=== PATIENT | female | born 1935 | race Caucasian/White ===

== ENCOUNTER → 2017-08-01 | Outpatient (CLI) | payer MEDICARE | END | disposition home or self-care (01) | LOC: RAD 10:31 | DX: J44.9 Chronic obstructive pulmonary disease, unspecified (principal) ==

== ENCOUNTER → 2017-08-14 | Outpatient (CLI) | payer MEDICARE | END | disposition home or self-care (01) | LOC: RAD 11:15 | DX: Z13.820 Encounter for screening for osteoporosis (principal); N95.9 Unspecified menopausal and perimenopausal disorder; Z90.710 Acquired absence of both cervix and uterus ==

== ENCOUNTER 2018-01-25 08:36 | Emergency (ER) | payer MEDICARE, OTHER ==
[~2018-01-25] VITALS: Ht 160 cm; Wt 56.7 kg
[2018-01-25] MEDS ORDERED: PREDNISONE20 M1 PO (08:55)
== END 2018-01-25 09:05 | disposition home or self-care (01) ==
LOC: ED 08:36
DX: S80.261A Insect bite (nonvenomous), right knee, initial encounter (principal); S40.861A Insect bite (nonvenomous) of right upper arm, initial encounter; S10.86XA Insect bite of other specified part of neck, initial encounter; Z88.2 Allergy status to sulfonamides; Z90.710 Acquired absence of both cervix and uterus; W57.XXXA Bitten or stung by nonvenomous insect and other nonvenomous arthropods, initial encounter; Y93.84 Activity, sleeping; Y92.099 Unspecified place in other non-institutional residence as the place of occurrence of the external cause; Y99.8 Other external cause status

== ENCOUNTER 2018-03-07 12:11 | Emergency (ER) | payer MEDICARE, OTHER ==
[~2018-03-07] VITALS: Ht 160 cm; Wt 55.8 kg
[~2018-03-07 12:11] MED LIST: PREDNISONE20 M1 PO
== END 2018-03-07 13:59 | disposition home or self-care (01) ==
LOC: ED 12:11
DX: S63.502A Unspecified sprain of left wrist, initial encounter (principal); Z88.2 Allergy status to sulfonamides; X58.XXXA Exposure to other specified factors, initial encounter; Y93.89 Activity, other specified; Y92.89 Other specified places as the place of occurrence of the external cause; Y99.8 Other external cause status

== ENCOUNTER 2018-07-22 04:27 | Emergency (ER) | payer MEDICARE, OTHER ==
[~2018-07-22] VITALS: Ht 160 cm; Wt 54.4 kg
[2018-07-22] MEDS ORDERED: MACROBID100 M1 PO (04:29)
== END 2018-07-22 04:54 | disposition home or self-care (01) ==
LOC: ED 04:27
DX: N39.0 Urinary tract infection, site not specified (principal); R42 Dizziness and giddiness; Z88.2 Allergy status to sulfonamides; Z90.710 Acquired absence of both cervix and uterus

== ENCOUNTER 2018-07-26 09:59 | Inpatient (IN) | payer MEDICARE, OTHER ==
[~2018-07-26] VITALS: Ht 160 cm; Wt 57.2 kg
--- NOTE | ~2018-07-26 | EKG ---
[place], [place] ELECTROCARDIOGRAM REPORT NAME: HARVINDER VIEIRA UNIT #: [id number] ROOM: [facility] DOCTOR: JESSIE DRAFT REPORT BIRTHDATE: [birth year] [facility] Test Date: 2018-07-26 Test Time: 16:09:22 Pat Name: HARVINDER VIEIRA Department: Room: [place] [address] Gender: F [employer] Lounge Receptionist: Latrice Flor : 1935 Requested By: ANITRA OSWALD Order Number: [id number] Reading MD: Mohamud Lopez MD Measurements Intervals [place] Rate: 89 P: 48 MO: 148 QRS: -23 QRSD: 146 T: 160 QT: 474 QTc: 577 Interpretive Statements Sinus rhythm Probable left atrial enlargement Left bundle branch block No change from earlier ECG this date Electronically Signed On 07-29-2018 15:35:20 PST by Mohamud Lopez MD CM:EKGRPT:ELECTROCARDIOGRAM REPORT [id number] ANITRA GUAMAN DRAFT REPORT ANITRA OSWALD DO
--- NOTE | ~2018-07-26 | EKG ---
[place], [place] ELECTROCARDIOGRAM REPORT NAME: HARVINDER VIEIRA UNIT #: [id number] ROOM: [facility] DOCTOR: STERLINGANY DRAFT REPORT BIRTHDATE: [birth year] [facility] Test Date: 2018-07-26 Test Time: 10:33:24 Pat Name: HARVINDER VIEIRA Department: Room: [facility] Gender: F Pet Resort Concierge: Patricia Barron : 1935 Requested By: JANINE ESCOBEDO Order Number: [id number] Reading MD: Mary Landers MD Measurements Intervals [place] Rate: 97 P: [place]: QRS: -34 QRSD: 142 T: 135 QT: 462 QTc: 587 Interpretive Statements Atrial fibrillation Left bundle branch block Electronically Signed On 07-26-2018 16:02:06 PST by Mary Landers MD CM:EKGRPT:ELECTROCARDIOGRAM REPORT [id number] JANINE ESCOBEDO EPIPHANY DRAFT REPORT JANINE ESCOBEDO
--- NOTE | ~2018-07-26 | EKG ---
[place], [place] ELECTROCARDIOGRAM REPORT NAME: HARVINDER VIEIRA UNIT #: [id number] ROOM: [facility] DOCTOR: JESSIE DRAFT REPORT BIRTHDATE: [birth year] [facility] Test Date: 2018-07-26 Test Time: 13:05:49 Pat Name: HARVINDER VIEIRA Department: Room: [place] [address] Gender: F Principal Programmer: Patricia Barron : 1935 Requested By: ANITRA OSWALD Order Number: [id number] Reading MD: Mary Landers MD Measurements Intervals [place] Rate: 80 P: 60 MD: 145 QRS: -23 QRSD: 141 T: 158 QT: 535 QTc: 618 Interpretive Statements Sinus rhythm Left bundle branch block Electronically Signed On 07-26-2018 16:02:50 PST by Mary Landers MD CM:EKGRPT:ELECTROCARDIOGRAM REPORT [id number] 1602 ANITAR GUAMAN DRAFT REPORT ANITRA OSWALD DO
[~2018-07-26 09:59] MED LIST changes: +MACROBID100 M1 PO
[2018-07-26 10:02] VITALS: BP 145/68
[2018-07-26 10:27] LABS: BILIRUBIN NEGATIVE (NEGATIVE); BLOOD TRACE-INTACT (NEGATIVE); CLARITY SL CLOUDY (CLEAR); COLOR YELLOW (YELLOW); GLUCOSE NEGATIVE (NEGATIVE); KETONE 1+ (NEGATIVE); LEUKO ESTERASE 1+ (NEGATIVE); NITRITE NEGATIVE (NEGATIVE); PH 5.5 (5.0-9.0); SPECIFIC GRAVITY >= 1.030 (1.005-1.030); UROBILINOGEN 0.2 E.U./dl (0.2-1.0)
[2018-07-26 10:32] LABS: HEMATOCRIT 38.5 % (37.0-47.0); HEMOGLOBIN 12.3 g/dl (12.0-16.0); MEAN CELL VOLUME 88.3 fl (81.0-99.0); MEAN CORPUSCULAR HGB 28.2 pg (27.0-31.0); MEAN CORPUSCULAR HGB CONC 31.9 g/dl (33.0-37.0); PLATELET COUNT AUTOMATED 450 10*3/uL (130-400); RED BLOOD COUNT 4.36 10*6/uL (4.10-5.10); WHITE BLOOD COUNT 17.4 10*3/uL (4.8-10.8)
[2018-07-26 10:36] LABS: BACTERIA 2+; WBC 16-20 wbc/hpf (0-5)
[2018-07-26 10:43] LABS: ACT PARTIAL THROMBO TIME 23.3 SECONDS (20.8-31.5); INTERNATIONAL NORM RATIO 1.1 (2.0-3.5)
[2018-07-26 10:50] LABS: ACANTHOCYTES FEW; BURR CELLS FEW; PLATELET SUFFICIENCY HIGH (NORMAL); POLYCHROMASIA SLIGHT; TOTAL CELLS COUNTED 100 #CELLS
[2018-07-26 10:55] LABS: ALBUMIN 3.8 gm/dl (3.1-4.5); CREATININE 1.2 mg/dL (0.55-1.02); POTASSIUM 3.7 mmol/L (3.5-5.1); TOTAL PROTEIN 7.2 gm/dL (6.4-8.2)
[2018-07-26 10:58] LABS: TROPONIN I 1.34 ng/ml (<0.045)
[2018-07-26 11:23] VITALS: BP 142/62
[2018-07-26 11:42] VITALS: BP 144/65
[2018-07-26 12:07] VITALS: BP 137/66
--- NOTE | 2018-07-26 12:15 | NUR ---
A 83yr old female admitted to ICCU, under the services of RASHAUN Griffiths DO with a diagnosis of UTI,Renal insufficiency, elevated Troponins, and Sepsis. Chief complaint is UTI. Patient arrived via stretcher from ER. Monitor applied. Initial assessment completed. Vital signs taken and recorded. See assessment for past medical history, medications and allergies. Patient and/or family oriented to unit. [facility] visitation policy reviewed. Clothing/patient valuable form completed. Medications reconciled with actual bottles, which were then given to her family. RONEL MEEK
[2018-07-26] MEDS ORDERED: MIDODRINE HCL5 M1 PO (12:18)
[2018-07-26] MEDS ORDERED: DEXILANT30 MG PO (12:19)
[2018-07-26] MEDS ORDERED: JANUVIA100 MG PO (12:19)
[2018-07-26] MEDS ORDERED: BETAPACE80 MG PO (12:20)
[2018-07-26] MEDS ORDERED: CRESTOR20 M1 PO (12:22)
[2018-07-26] MEDS ORDERED: ELIQUIS2.5 M1 PO (12:23)
--- NOTE | 2018-07-26 13:10 | NUR ---
[facility] NOTIFIED OF CONSULT.
--- NOTE | 2018-07-26 14:45 | NUR ---
DR. ARELLANO HERE AND NOTIFIED DR. HUNTER OF CONSULT AND CT SCAN REPORT.
--- NOTE | 2018-07-26 15:09 | NUR ---
MESSAGE LEFT WITH SURGERY RN FOR CONSULT WITH DR. PENN
[2018-07-26 16:00] VITALS: BP 137/66
[2018-07-26 16:42] LABS: TROPONIN I 1.62 ng/ml (<0.045)
--- NOTE | 2018-07-26 18:21 | NUR ---
REPORT CALLED TO [facility] TAMIKA JOHNSON. TRANSPORTAION BEING ARRANGED WITH A LOCAL AMBULANCE COMPANY.
--- NOTE | 2018-07-26 19:03 | NUR ---
TRANSFERRED TO [facility]IA [facility]. REPORT CALLED TO ALEX
[2018-07-27 09:09] LABS: HEPATITIS B SURFACE AG Negative (Negative); HEPATITIS C VIRUS ANTIBODY <0.1 s/co (0.0-0.9)
== END 2018-07-26 19:03 | disposition short-term general hospital (02) | DRG 871 ==
LOC: ED 09:59 → EDHOLD 11:41 → ICCU 11:41
PROVIDERS: Internal Medicine; Nurse Practitioner Family; ADMIT Internal Medicine
DX: A41.9 Sepsis, unspecified organism (principal); R65.20 Severe sepsis without septic shock; N17.0 Acute kidney failure with tubular necrosis; K25.5 Chronic or unspecified gastric ulcer with perforation; N30.00 Acute cystitis without hematuria; E87.1 Hypo-osmolality and hyponatremia; I24.8 Other forms of acute ischemic heart disease; Z66 Do not resuscitate; R07.89 Other chest pain; I48.0 Paroxysmal atrial fibrillation; E78.5 Hyperlipidemia, unspecified; I44.7 Left bundle-branch block, unspecified; K66.8 Other specified disorders of peritoneum; E11.65 Type 2 diabetes mellitus with hyperglycemia; D47.3 Essential (hemorrhagic) thrombocythemia; E86.0 Dehydration; K21.9 Gastro-esophageal reflux disease without esophagitis; I95.0 Idiopathic hypotension; I34.0 Nonrheumatic mitral (valve) insufficiency; I27.20 Pulmonary hypertension, unspecified; Z51.5 Encounter for palliative care; Z86.711 Personal history of pulmonary embolism; Z88.2 Allergy status to sulfonamides; Z82.49 Family history of ischemic heart disease and other diseases of the circulatory system; Z79.899 Other long term (current) drug therapy

== ENCOUNTER → 2018-11-13 | Outpatient (CLI) | payer MEDICARE, OTHER ==
[~2018-11-13] MED LIST changes: +BETAPACE80 MG PO; +CRESTOR20 M1 PO; +DEXILANT30 MG PO; +ELIQUIS2.5 M1 PO; +JANUVIA100 MG PO; +MIDODRINE HCL5 M1 PO
[2018-11-13 09:32] LABS: BILIRUBIN NEGATIVE (NEGATIVE); BLOOD NEGATIVE (NEGATIVE); CLARITY CLEAR (CLEAR); COLOR YELLOW (YELLOW); GLUCOSE NEGATIVE (NEGATIVE); KETONE NEGATIVE (NEGATIVE); LEUKO ESTERASE TRACE (NEGATIVE); NITRITE NEGATIVE (NEGATIVE); PH 5.5 (5.0-9.0); UROBILINOGEN 0.2 E.U./dl (0.2-1.0)
[2018-11-13 09:43] LABS: ALBUMIN 4.1 gm/dl (3.1-4.5); CREATININE 2.75 mg/dL (0.55-1.02); PHOSPHOROUS 4.9 mg/dL (2.5-4.9); POTASSIUM 3.6 mmol/L (3.5-5.1)
[2018-11-13 09:46] LABS: BACTERIA 1+; EPITHELIAL CELLS 21-30
== END | disposition home or self-care (01) ==
LOC: LAB 08:53
PROVIDERS: Internal Medicine Nephrology
DX: N17.9 Acute kidney failure, unspecified (principal); Z79.899 Other long term (current) drug therapy

== ENCOUNTER 2019-05-24 10:04 | Inpatient (IN) | payer MEDICARE, OTHER ==
[~2019-05-24] VITALS: Ht 160 cm; Wt 60.1 kg
[2019-05-24 10:06] VITALS: BP 150/80
[2019-05-24 10:45] VITALS: BP 147/81
[2019-05-24 10:47] LABS: BASO # 0.1 10*3/uL (0.0-0.1); BASO % 0.8 % (0.0-1.0); EOS # 0.1 10*3/uL (0.0-0.4); EOS % 1.6 % (1.0-4.0); HEMATOCRIT 29.2 % (37.0-47.0); HEMOGLOBIN 9.5 g/dl (12.0-16.0); LYMPH # 1.9 10*3/uL (1.3-4.4); LYMPH % 24.5 % (27.0-41.0); MEAN CELL VOLUME 87.4 fl (81.0-99.0); MEAN CORPUSCULAR HGB 28.4 pg (27.0-31.0); MEAN CORPUSCULAR HGB CONC 32.5 g/dl (33.0-37.0); MEAN PLATELET VOLUME 10.5 fl (9.6-12.3); MONO # 0.8 10*3/uL (0.1-1.0); MONO % 10.6 % (3.0-9.0); NEUT # 4.8 10*3/uL (2.3-7.9); NEUT % 62.2 % (47.0-73.0); PLATELET COUNT AUTOMATED 277 10*3/uL (130-400); RED BLOOD COUNT 3.34 10*6/uL (4.10-5.10); RED CELL DISTRI WIDTH 14.3 % (0-14.5); WHITE BLOOD COUNT 7.6 10*3/uL (4.8-10.8)
[2019-05-24 11:09] LABS: CREATININE 2.06 mg/dL (0.55-1.02); POTASSIUM 4.5 mmol/L (3.5-5.1)
[2019-05-24 11:12] LABS: TROPONIN I 0.081 ng/ml (<0.045)
[2019-05-24 12:05] VITALS: BP 164/82
--- NOTE | 2019-05-24 12:17 | NUR ---
PT DENIES ANY OPEN SORES OR WOUNDS. SHE DOES HAVE SCATTERED ECCHYMOTIC/BRUISED AREAS TO ARMS AND LEGS. SHE IS CURRENTLY ON ELIQUIS. CHIVO JOHNSON
[2019-05-24 12:20] LABS: BILIRUBIN NEGATIVE (NEGATIVE); BLOOD TRACE-INTACT (NEGATIVE); CLARITY CLOUDY (CLEAR); COLOR YELLOW (YELLOW); GLUCOSE NEGATIVE (NEGATIVE); KETONE NEGATIVE (NEGATIVE); LEUKO ESTERASE 1+ (NEGATIVE); NITRITE POSITIVE (NEGATIVE); PH 5.5 (5.0-9.0); UROBILINOGEN 0.2 E.U./dl (0.2-1.0)
[2019-05-24 12:25] LABS: BACTERIA 4+
[2019-05-24 12:28] LABS: WBC 51-100 wbc/hpf (0-5)
[2019-05-24 12:50] VITALS: BP 158/77
--- NOTE | 2019-05-24 12:50 | NUR ---
A 84, admitted to , under the services of SAMANTA Dyer DO with a diagnosis of CHEST PAIN. Chief complaint is SOBX3 DAYS, GENERALIZED WEAKNESS, DIZZY. Patient arrived via ambulatory from ER. Monitor applied. Initial assessment completed. Vital signs taken and recorded. SAMANTA DYER DO notified of admission to the unit. Orders received. See assessment for past medical history, medications and allergies. Patient and/or family oriented to unit. [facility] visitation policy reviewed. Clothing/patient valuable form completed. TOMAS BRYANT A
[2019-05-24] MEDS ORDERED: PROTONIX40 MG PO (13:10)
--- NOTE | 2019-05-24 13:11 | NUR ---
MED REC UPDATED WITH FAMILY AT BEDSIDE.
--- NOTE | 2019-05-24 13:34 | NUR ---
CONSULT CALLED TO .
--- NOTE | 2019-05-24 13:39 | NUR ---
NOTIFIED OF CONSULT. NEW ORDERS FOR NORMAL SALINE CONTINUOUS & URINE STUDIES. CALLED BACK, NO NEW ORDERS REC'D. WILL SEE PT IN AM.
[2019-05-24 16:00] VITALS: BP 155/71
[2019-05-24 20:00] VITALS: BP 163/69
[2019-05-25] VITALS: BP 146/83
[2019-05-25 06:37] LABS: BASO # 0.1 10*3/uL (0.0-0.1); EOS # 0.1 10*3/uL (0.0-0.4); EOS % 1.7 % (1.0-4.0); HEMATOCRIT 27.7 % (37.0-47.0); HEMOGLOBIN 8.8 g/dl (12.0-16.0); LYMPH # 1.8 10*3/uL (1.3-4.4); LYMPH % 25.4 % (27.0-41.0); MEAN CELL VOLUME 88.8 fl (81.0-99.0); MEAN CORPUSCULAR HGB 28.2 pg (27.0-31.0); MEAN CORPUSCULAR HGB CONC 31.8 g/dl (33.0-37.0); MONO # 0.8 10*3/uL (0.1-1.0); MONO % 11.5 % (3.0-9.0); NEUT # 4.2 10*3/uL (2.3-7.9); NEUT % 60.3 % (47.0-73.0); PLATELET COUNT AUTOMATED 257 10*3/uL (130-400); RED BLOOD COUNT 3.12 10*6/uL (4.10-5.10); RED CELL DISTRI WIDTH 14.4 % (0-14.5)
[2019-05-25 06:51] LABS: ALBUMIN 3.4 gm/dl (3.1-4.5); POTASSIUM 4.3 mmol/L (3.5-5.1)
[2019-05-25 07:00] LABS: CREATININE 1.57 mg/dL (0.55-1.02); FREE T4 1.46 ng/dl (0.76-1.46); THYROID STIM HORMONE (HS) 1.52 uIU/ml (0.358-4.75); TOTAL PROTEIN 6.2 gm/dL (6.4-8.2)
[2019-05-25 08:00] VITALS: BP 115/75
--- NOTE | 2019-05-25 08:50 | NUR ---
C/O NAUSEA AND MINIMAL APPETITE. NAUSEA GIVEN PER ORDERS. CALL LIGHT WITHIN REACH. IVF GOING WITH EASE. AT BEDSIDE. WILL MONITOR.
--- NOTE | 2019-05-25 11:47 | NUR ---
NO COMPLAINTS VOICED. STATES NAUSEA HAS RESOLVED. ORDERED LUNCH. WILL MONITOR. BSG 117.
[2019-05-25 12:00] VITALS: BP 157/71
[2019-05-25 16:00] VITALS: BP 149/64
[2019-05-25 20:00] VITALS: BP 145/64
--- NOTE | 2019-05-25 20:08 | NUR ---
PRN IV ZOFRAN GIVEN PER PT REQUEST FOR NAUSEA. BED IN LOW POSITION, CALL LIGHT WITHIN REACH, SIDE RAILS X2.
--- NOTE | 2019-05-25 22:18 | NUR ---
PT STATES MARCOAN EFFECTIVE AT THIS TIME. ENCOURAGED TO CALL FOR ASSISTANCE. CALL LIGHT IN REACH.
[2019-05-26] VITALS: BP 145/72
--- NOTE | 2019-05-26 00:42 | NUR ---
IV started right forearm with #22 protective cath after 0 attempts. Site prepped with Chloroprep. Sterile dressing applied. Patient tolerated procedure well. IV infusing at 60 cc/hr. BRITTNEY CHAUDHARI
--- NOTE | 2019-05-26 05:46 | NUR ---
DULCOLAX PROVIDED PER PT REQUEST FOR CONSTIPATON.
[2019-05-26 07:14] LABS: BASO # 0.1 10*3/uL (0.0-0.1); BASO % 0.5 % (0.0-1.0); EOS # 0.1 10*3/uL (0.0-0.4); EOS % 0.6 % (1.0-4.0); HEMATOCRIT 30.7 % (37.0-47.0); HEMOGLOBIN 9.4 g/dl (12.0-16.0); LYMPH # 1.6 10*3/uL (1.3-4.4); LYMPH % 16.3 % (27.0-41.0); MEAN CELL VOLUME 90.6 fl (81.0-99.0); MEAN CORPUSCULAR HGB 27.7 pg (27.0-31.0); MEAN CORPUSCULAR HGB CONC 30.6 g/dl (33.0-37.0); MEAN PLATELET VOLUME 11.2 fl (9.6-12.3); MONO # 1.3 10*3/uL (0.1-1.0); MONO % 12.9 % (3.0-9.0); NEUT # 6.7 10*3/uL (2.3-7.9); NEUT % 69.2 % (47.0-73.0); PLATELET COUNT AUTOMATED 303 10*3/uL (130-400); RED BLOOD COUNT 3.39 10*6/uL (4.10-5.10); RED CELL DISTRI WIDTH 14.8 % (0-14.5); WHITE BLOOD COUNT 9.7 10*3/uL (4.8-10.8)
[2019-05-26 07:16] LABS: CREATININE 1.89 mg/dL (0.55-1.02)
[2019-05-26 07:38] LABS: POTASSIUM 5.3 mmol/L (3.5-5.1)
--- NOTE | 2019-05-26 08:33 | NUR ---
Nursing screen received and chart reviewed. Patient admitted for chest pain, weakness, and upset stomach. If patient has a decline in ADLs, please send OT orders. Thank you. Shyann Wilde, OTR/L
--- NOTE | 2019-05-26 09:00 | NUR ---
Cannery Tender Engineer in to talk to patient. Patient states lives at home with son. There are few steps in the home. Physician: yeison villanueva Pharmacy: [facility] health services: none Patient's level of ADLs: INDEPENDENT Patient has working utilities: all working DME: none Follow-up physician's appointment after d/c: will be made by hospitalist nurse director upon discharge Does patient want to access PORTAL?: no Discharge plan discussed with patient, son present, she lives at home with son, is independent in adls and ambulation, she states she will return home when medically stable and denies and home needs. case management will follow. JAMES JIMÉNEZ
--- NOTE | 2019-05-26 09:31 | NUR ---
PT MEDICATED WITH ZOFRAN IV FOR C/O NAUSEA.
--- NOTE | 2019-05-26 11:07 | NUR ---
PT STATED ZOFRAN WAS EFFECTIVE IN EASING HER NAUSEA.
[2019-05-26 12:00] VITALS: BP 148/69
--- NOTE | 2019-05-26 12:00 | NUR ---
PT HAD LARGE EMESIS AND C/O ABD PAIN. PT BECAME VERY WEAK AND DIAPHORETIC. BP 150/86 HR 70 POX 95% ON RA. BLOOD GLUCOSE 65. DR PETER MADE AWARE OF PT'S CHANGE IN CONDITION. DR PETER, DR QUIROGA AND DR SHAH IN TO SEE THE PT IMMEDIATLEY. NEW ORDERS RECEIVED.
[2019-05-26 13:19] LABS: BASO % 0.3 % (0.0-1.0); HEMATOCRIT 33.3 % (37.0-47.0); HEMOGLOBIN 10.2 g/dl (12.0-16.0); LYMPH # 1.6 10*3/uL (1.3-4.4); LYMPH % 10.5 % (27.0-41.0); MEAN CELL VOLUME 93.5 fl (81.0-99.0); MEAN CORPUSCULAR HGB 28.7 pg (27.0-31.0); MEAN CORPUSCULAR HGB CONC 30.6 g/dl (33.0-37.0); MEAN PLATELET VOLUME 11.2 fl (9.6-12.3); MONO # 1.4 10*3/uL (0.1-1.0); MONO % 8.9 % (3.0-9.0); NEUT # 12.2 10*3/uL (2.3-7.9); NEUT % 79.7 % (47.0-73.0); NUCLEATED RED BLOOD CELL 0.1 10*3/uL (0.0-0.0); NUCLEATED RED BLOOD CELL 0.5 % (0.0-0.0); PLATELET COUNT AUTOMATED 309 10*3/uL (130-400); RED BLOOD COUNT 3.56 10*6/uL (4.10-5.10); WHITE BLOOD COUNT 15.3 10*3/uL (4.8-10.8)
--- NOTE | 2019-05-26 13:37 | NUR ---
DR PETER MADE AWARE OF PT'S LACTIC ACID OF 8.6 AND TROPONIN LEVEL OF 0.064.
--- NOTE | 2019-05-26 13:50 | NUR ---
PT CONTINUES TO C/O "FEELING WORSE THEN I EVER HAVE IN MY LIFE". PT VERY WEAK UNABLE TO EVEN HOLD HER HEAD UP FOR VERY LONG. STATES SHE FEELS LIKE SHE IS GOING TO PASS OUT. SBP 150'S. IV FLUIDS OF D51/[address] PETER AWARE OF PT'S CONDITION AND ORDER TO TRANSFER PT ICCU AT THIS TIME. REPORT GIVEN TO PROFESSIONAL NURSING ASSISTANTALEX KRISHNAN.
--- NOTE | 2019-05-26 14:08 | NUR ---
PHYSICAL THERAPY Chart reviewed screen received, per nsg notes pt very weak/dizzy from home setting transfered today to ICU, would recomend physical therapy eval when medically appropriate, thank you. Aidee Walters PT
--- NOTE | 2019-05-26 15:00 | NUR ---
PATIENT TAKEN TO RADIOLOGY VIA WHEELCHAIR FOR CT ABDOMEN.
[2019-05-26 15:17] LABS: CREATININE 2.06 mg/dL (0.55-1.02); PHOSPHOROUS 5.1 mg/dL (2.5-4.9); POTASSIUM 5.7 mmol/L (3.5-5.1)
--- NOTE | 2019-05-26 15:25 | NUR ---
PATIENT BACK FROM CT ABDOMEN. PATIENT ASSISTED TO THE BSC AND SMALL HARD BOWEL MOVEMENT OBSERVED. PATIENT GAIT UNSTEADY. BED ALARM ON.
--- NOTE | 2019-05-26 15:54 | NUR ---
DR. SHAH IN TO SEE THE PATIENT. ORDERS RECEIVED
[2019-05-26 16:00] VITALS: BP 153/59
--- NOTE | 2019-05-26 17:00 | NUR ---
DR. PETER SPOKE TO THE FAMILY ABOUT CT ABDOMEN RESULTS. PATIENT FAMILY WOULD LIKE THE PATIENT TRANSFERRED TO [facility] WHERE SHE FIRST WAS HAVING ISSUES BACK IN JULY.
[2019-05-26 18:35] LABS: CREATININE 2.29 mg/dL (0.55-1.02); POTASSIUM 5.4 mmol/L (3.5-5.1)
[2019-05-26 18:40] LABS: TROPONIN I 0.106 ng/ml (<0.045)
--- NOTE | 2019-05-26 18:43 | NUR ---
SPOKE TO DR. SHAH ABOUT CRITICAL LAB RESULTS. PATIENT LABS AND CONDITION REVIEWED. ORDERS RECEIVED TO GIVE FLUIDS D5W WITH 150MEQ OF SODIUM BICARBONATE AT 200CC/HR.
[2019-05-26 20:00] VITALS: BP 144/40
--- NOTE | 2019-05-26 20:18 | NUR ---
PT. RESTING IN BED. IVF WITH BICARB INFUSING ORDERED, SITE ASYMPT. LUNGS CLEAR BUT DIMINISHED BILAT, PULSE OX 100% ON RA. ABDOMEN SOFT ,NONDISTENDED AND NORMO. NO PERIPHERAL EDEMA NOTED. BOOTHE CATHETER DRAINING A CLEAR YELLOW URINE. [facility]. VS STABLE. AWAITING AMBULANCE...
--- NOTE | 2019-05-26 21:13 | NUR ---
PT. PREPARED FOR TRANSFER VIA [facility], ALL BELONGINGS SENT HOME WITH FAMILY. BED ASSIGNMENT RECEIVED FROM [facility]. AWAITING [facility] FOR TRANSFPORT. VS REMAINS STABLE. SAULO LARRY RN
--- NOTE | 2019-05-26 21:36 | NUR ---
PT. [facility] FAMILY AT [facility]EDS[facility]. VS STABLE. SAULO LARRY RN
== END 2019-05-26 21:36 | disposition short-term general hospital (02) | DRG 689 ==
LOC: ED 10:04 → ICCU 12:15 → EDHOLD 12:15 → 4E 12:34 → ICCU 05-26 13:47
PROVIDERS: Emergency Medicine; Family Medicine; Internal Medicine; Internal Medicine Nephrology; ADMIT Internal Medicine
DX: N39.0 Urinary tract infection, site not specified (principal); N17.0 Acute kidney failure with tubular necrosis; N18.4 Chronic kidney disease, stage 4 (severe); E87.2 Acidosis; K81.0 Acute cholecystitis; E87.0 Hyperosmolality and hypernatremia; E87.8 Other disorders of electrolyte and fluid balance, not elsewhere classified; R79.89 Other specified abnormal findings of blood chemistry; R06.02 Shortness of breath; I13.10 Hypertensive heart and chronic kidney disease without heart failure, with stage 1 through stage 4 chronic kidney disease, or unspecified chronic kidney disease; D64.9 Anemia, unspecified; I44.7 Left bundle-branch block, unspecified; I48.0 Paroxysmal atrial fibrillation; E78.2 Mixed hyperlipidemia; E11.65 Type 2 diabetes mellitus with hyperglycemia; I27.20 Pulmonary hypertension, unspecified; K21.9 Gastro-esophageal reflux disease without esophagitis; B96.20 Unspecified Escherichia coli [E. coli] as the cause of diseases classified elsewhere; I25.10 Atherosclerotic heart disease of native coronary artery without angina pectoris; D72.829 Elevated white blood cell count, unspecified; I34.0 Nonrheumatic mitral (valve) insufficiency; E87.5 Hyperkalemia; R07.9 Chest pain, unspecified; R74.8 Abnormal levels of other serum enzymes; E83.41 Hypermagnesemia; E83.39 Other disorders of phosphorus metabolism; E11.22 Type 2 diabetes mellitus with diabetic chronic kidney disease; Z88.2 Allergy status to sulfonamides; Z86.711 Personal history of pulmonary embolism; Z87.440 Personal history of urinary (tract) infections; Z90.710 Acquired absence of both cervix and uterus; Z82.49 Family history of ischemic heart disease and other diseases of the circulatory system; Z80.8 Family history of malignant neoplasm of other organs or systems; Z83.3 Family history of diabetes mellitus; Z87.891 Personal history of nicotine dependence; Z79.84 Long term (current) use of oral hypoglycemic drugs

== ENCOUNTER → 2020-04-22 | Outpatient (CLI) | payer MEDICARE, OTHER ==
[~2020-04-22] MED LIST changes: +PROTONIX40 MG PO
[2020-04-22 11:42] LABS: BASO # 0.1 10*3/uL (0.0-0.1); BASO % 0.8 % (0.0-1.0); EOS # 0.1 10*3/uL (0.0-0.4); EOS % 2.2 % (1.0-4.0); HEMATOCRIT 35.6 % (37.0-47.0); LYMPH # 1.4 10*3/uL (1.3-4.4); LYMPH % 24.4 % (27.0-41.0); MEAN CORPUSCULAR HGB 29.7 pg (27.0-31.0); MEAN CORPUSCULAR HGB CONC 32.3 g/dl (33.0-37.0); MEAN PLATELET VOLUME 10.3 fl (9.6-12.3); MONO # 0.6 10*3/uL (0.1-1.0); NEUT # 3.7 10*3/uL (2.3-7.9); NEUT % 62.3 % (47.0-73.0); PLATELET COUNT AUTOMATED 266 10*3/uL (130-400); RED BLOOD COUNT 3.87 10*6/uL (4.10-5.10); RED CELL DISTRI WIDTH 13.2 % (0-14.5); WHITE BLOOD COUNT 5.9 10*3/uL (4.8-10.8)
[2020-04-22 11:58] LABS: ALBUMIN 3.9 gm/dl (3.1-4.5); CREATININE 1.49 mg/dL (0.55-1.02); POTASSIUM 4.1 mmol/L (3.5-5.1); TOTAL PROTEIN 7.7 gm/dL (6.4-8.2)
== END | disposition home or self-care (01) ==
LOC: LAB 11:06
PROVIDERS: ATTEND Internal Medicine Advanced Heart Failure and Transplant Cardiology
DX: I42.8 Other cardiomyopathies (principal); E78.5 Hyperlipidemia, unspecified; Z79.01 Long term (current) use of anticoagulants

== ENCOUNTER → 2020-07-08 | Outpatient (CLI) | payer MEDICARE, OTHER | END | disposition home or self-care (01) | LOC: COVID19 10:53 | PROVIDERS: ATTEND Family Medicine | DX: Z20.828 Contact with and (suspected) exposure to other viral communicable diseases (principal) ==

== ENCOUNTER → 2020-08-16 | Outpatient (CLI) | payer MEDICARE, OTHER ==
[2020-08-16 10:07] LABS: BASO # 0.1 10*3/uL (0.0-0.1); BASO % 0.6 % (0.0-1.0); EOS # 0.1 10*3/uL (0.0-0.4); EOS % 1.1 % (1.0-4.0); HEMATOCRIT 36.7 % (37.0-47.0); LYMPH # 1.4 10*3/uL (1.3-4.4); LYMPH % 17.5 % (27.0-41.0); MEAN CELL VOLUME 92.2 fl (81.0-99.0); MEAN CORPUSCULAR HGB 29.6 pg (27.0-31.0); MEAN CORPUSCULAR HGB CONC 32.2 g/dl (33.0-37.0); MEAN PLATELET VOLUME 10.7 fl (9.6-12.3); MONO # 0.7 10*3/uL (0.1-1.0); MONO % 8.6 % (3.0-9.0); NEUT # 5.7 10*3/uL (2.3-7.9); NEUT % 71.8 % (47.0-73.0); PLATELET COUNT AUTOMATED 265 10*3/uL (130-400); RED BLOOD COUNT 3.98 10*6/uL (4.10-5.10); RED CELL DISTRI WIDTH 13.9 % (0-14.5)
[2020-08-16 10:24] LABS: ALBUMIN 3.9 gm/dl (3.1-4.5); CREATININE 1.43 mg/dL (0.55-1.02); POTASSIUM 4.1 mmol/L (3.5-5.1); TOTAL PROTEIN 7.5 gm/dL (6.4-8.2)
== END | disposition home or self-care (01) ==
LOC: LAB 09:27
PROVIDERS: ATTEND Internal Medicine Advanced Heart Failure and Transplant Cardiology
DX: I25.10 Atherosclerotic heart disease of native coronary artery without angina pectoris (principal); I42.8 Other cardiomyopathies; K92.2 Gastrointestinal hemorrhage, unspecified; Z79.01 Long term (current) use of anticoagulants

== ENCOUNTER 2020-12-16 13:13 | Emergency (ER) | payer MEDICARE, OTHER | END 2020-12-16 15:11 | disposition home or self-care (01) | LOC: ED 13:13 | DX: S81.811A Laceration without foreign body, right lower leg, initial encounter (principal); Z88.2 Allergy status to sulfonamides; Z79.899 Other long term (current) drug therapy; Z90.49 Acquired absence of other specified parts of digestive tract; Z98.890 Other specified postprocedural states; Z90.711 Acquired absence of uterus with remaining cervical stump ==

== ENCOUNTER 2020-12-16 17:04 | Emergency (ER) | payer MEDICARE, OTHER ==
[~2020-12-16] VITALS: Ht 160 cm; Wt 54.4 kg
== END 2020-12-16 19:43 | disposition home or self-care (01) ==
LOC: ED 17:04
DX: S81.811D Laceration without foreign body, right lower leg, subsequent encounter (principal); Z79.01 Long term (current) use of anticoagulants; Z88.2 Allergy status to sulfonamides; Z79.899 Other long term (current) drug therapy; Z90.49 Acquired absence of other specified parts of digestive tract; Z90.711 Acquired absence of uterus with remaining cervical stump; Z98.890 Other specified postprocedural states; X58.XXXD Exposure to other specified factors, subsequent encounter

== ENCOUNTER → 2020-12-20 | Outpatient (CLI) | payer MEDICARE, OTHER | LOC: WOUNDCARE 05:09 | PROVIDERS: ATTEND Nurse Practitioner | DX: S80.811A Abrasion, right lower leg, initial encounter (principal); E11.65 Type 2 diabetes mellitus with hyperglycemia; Z87.891 Personal history of nicotine dependence; Z90.49 Acquired absence of other specified parts of digestive tract; Z90.710 Acquired absence of both cervix and uterus; W10.9XXA Fall (on) (from) unspecified stairs and steps, initial encounter; Y93.89 Activity, other specified; Y92.89 Other specified places as the place of occurrence of the external cause; Y99.8 Other external cause status ==

== ENCOUNTER → 2020-12-27 | Outpatient (CLI) | payer MEDICARE, OTHER | LOC: WOUNDCARE 01:06 | PROVIDERS: ATTEND Nurse Practitioner | DX: S80.811D Abrasion, right lower leg, subsequent encounter (principal); E11.65 Type 2 diabetes mellitus with hyperglycemia; L03.115 Cellulitis of right lower limb; Z87.891 Personal history of nicotine dependence; W10.9XXD Fall (on) (from) unspecified stairs and steps, subsequent encounter ==

== ENCOUNTER → 2021-01-03 | Outpatient (CLI) | payer MEDICARE, OTHER | LOC: WOUNDCARE 05:39 | PROVIDERS: ATTEND Nurse Practitioner | DX: S80.811D Abrasion, right lower leg, subsequent encounter (principal); E11.65 Type 2 diabetes mellitus with hyperglycemia; L03.115 Cellulitis of right lower limb; Z87.891 Personal history of nicotine dependence; W10.9XXD Fall (on) (from) unspecified stairs and steps, subsequent encounter ==

== ENCOUNTER → 2021-01-11 | Outpatient (CLI) | payer MEDICARE, OTHER | LOC: WOUNDCARE 01:14 | PROVIDERS: ATTEND Nurse Practitioner | DX: S80.811D Abrasion, right lower leg, subsequent encounter (principal); E11.65 Type 2 diabetes mellitus with hyperglycemia; L03.115 Cellulitis of right lower limb; Z87.891 Personal history of nicotine dependence; W10.9XXD Fall (on) (from) unspecified stairs and steps, subsequent encounter ==

== ENCOUNTER → 2021-01-17 | Outpatient (CLI) | payer MEDICARE, OTHER | LOC: WOUNDCARE 01:10 | PROVIDERS: ATTEND Nurse Practitioner | DX: S80.811D Abrasion, right lower leg, subsequent encounter (principal); E11.65 Type 2 diabetes mellitus with hyperglycemia; L03.115 Cellulitis of right lower limb; Z87.891 Personal history of nicotine dependence; W10.9XXD Fall (on) (from) unspecified stairs and steps, subsequent encounter ==

== ENCOUNTER → 2021-01-24 | Outpatient (CLI) | payer MEDICARE, OTHER | LOC: WOUNDCARE 01:15 | PROVIDERS: ATTEND Nurse Practitioner | DX: S81.811D Laceration without foreign body, right lower leg, subsequent encounter (principal); S80.811D Abrasion, right lower leg, subsequent encounter; E11.65 Type 2 diabetes mellitus with hyperglycemia; L03.115 Cellulitis of right lower limb; Z87.891 Personal history of nicotine dependence; W10.9XXD Fall (on) (from) unspecified stairs and steps, subsequent encounter ==

== ENCOUNTER → 2021-02-02 | Outpatient (CLI) | payer MEDICARE, OTHER ==
[2021-02-02 10:39] LABS: CHOLESTEROL 191 mg/dL (<200); LDL CHOLESTEROL 122 mg/dL (9-159); SGOT/AST 18 IU/L (3-35); SGPT/ALT 28 U/L (12-78); TRIGLYCERIDES 96 mg/dl (<150)
== END | disposition home or self-care (01) ==
LOC: LAB 09:19
PROVIDERS: ATTEND Internal Medicine Advanced Heart Failure and Transplant Cardiology
DX: E78.5 Hyperlipidemia, unspecified (principal)

== ENCOUNTER → 2021-12-21 | Outpatient (CLI) | payer MEDICARE, OTHER ==
[2021-12-21 10:42] LABS: BASO % 0.4 % (0.0-1.0); EOS # 0.2 10*3/uL (0.0-0.4); EOS % 2.5 % (1.0-4.0); HEMATOCRIT 31.8 % (37.0-47.0); LYMPH # 1.7 10*3/uL (1.3-4.4); LYMPH % 25.5 % (27.0-41.0); MEAN CELL VOLUME 87.8 fl (81.0-99.0); MEAN CORPUSCULAR HGB 29.3 pg (27.0-31.0); MEAN CORPUSCULAR HGB CONC 33.3 g/dl (33.0-37.0); MEAN PLATELET VOLUME 10.6 fl (9.6-12.3); MONO # 0.6 10*3/uL (0.1-1.0); MONO % 9.2 % (3.0-9.0); NEUT # 4.2 10*3/uL (2.3-7.9); NEUT % 62.1 % (47.0-73.0); PLATELET COUNT AUTOMATED 250 10*3/uL (130-400); RED BLOOD COUNT 3.62 10*6/uL (4.10-5.10); RED CELL DISTRI WIDTH 13.2 % (0-14.5); WHITE BLOOD COUNT 6.8 10*3/uL (4.8-10.8)
[2021-12-21 10:47] LABS: BILIRUBIN Negative (Negative); BLOOD Negative (Negative); CLARITY Cloudy (Clear); COLOR Yellow (Yellow); GLUCOSE Negative (Negative); KETONE Trace (Negative); LEUKO ESTERASE 2+ (Negative); NITRITE Negative (Negative); PH 5.5 (4.5-8.0); SPECIFIC GRAVITY 1.015 (1.001-1.030)
[2021-12-21 10:58] LABS: CREATININE 2.01 mg/dL (0.55-1.02); POTASSIUM 4.1 mmol/L (3.5-5.1)
[2021-12-21 11:27] LABS: VITAMIN D, 25-HYDROXY 22.8 ng/mL (30-100)
[2021-12-21 11:28] LABS: FERRITIN 27.2 ng/mL (10.0-291.0)
[2021-12-21 13:59] LABS: BACTERIA 3+; EPITHELIAL CELLS 21-30; WBC 31-40 wbc/hpf (0-5)
== END | disposition home or self-care (01) ==
LOC: LAB 10:07
PROVIDERS: ATTEND Internal Medicine Nephrology
DX: N25.81 Secondary hyperparathyroidism of renal origin (principal); N18.9 Chronic kidney disease, unspecified; D63.1 Anemia in chronic kidney disease; N17.9 Acute kidney failure, unspecified; Z79.899 Other long term (current) drug therapy

== ENCOUNTER → 2022-04-12 | Outpatient (CLI) | payer MEDICARE ==
[2022-04-12 10:37] LABS: BASO # 0.1 10*3/uL (0.0-0.1); EOS # 0.2 10*3/uL (0.0-0.4); EOS % 3.5 % (1.0-4.0); HEMATOCRIT 34.7 % (37.0-47.0); LYMPH # 1.4 10*3/uL (1.3-4.4); LYMPH % 23.2 % (27.0-41.0); MEAN CELL VOLUME 90.1 fl (81.0-99.0); MEAN CORPUSCULAR HGB 29.6 pg (27.0-31.0); MEAN CORPUSCULAR HGB CONC 32.9 g/dl (33.0-37.0); MEAN PLATELET VOLUME 10.3 fl (9.6-12.3); MONO # 0.5 10*3/uL (0.1-1.0); MONO % 8.9 % (3.0-9.0); NEUT # 3.8 10*3/uL (2.3-7.9); NEUT % 63.1 % (47.0-73.0); PLATELET COUNT AUTOMATED 299 10*3/uL (130-400); RED BLOOD COUNT 3.85 10*6/uL (4.10-5.10); RED CELL DISTRI WIDTH 13.1 % (0-14.5)
[2022-04-12 10:50] LABS: BILIRUBIN Negative (Negative); BLOOD Negative (Negative); CLARITY Cloudy (Clear); COLOR Yellow (Yellow); GLUCOSE Negative (Negative); KETONE Negative (Negative); LEUKO ESTERASE 1+ (Negative); NITRITE Negative (Negative); PH 5.5 (4.5-8.0); SPECIFIC GRAVITY >= 1.030 (1.001-1.030); UROBILINOGEN 0.2 E.U./dl (0.0-1.0)
[2022-04-12 10:54] LABS: CREATININE 1.49 mg/dL (0.55-1.02); POTASSIUM 4.1 mmol/L (3.5-5.1)
[2022-04-12 11:22] LABS: BACTERIA 3+; EPITHELIAL CELLS 21-30
[2022-04-12 11:23] LABS: RBC 0-2 rbc/hpf (0-2)
[2022-04-12 11:36] LABS: FERRITIN 18.3 ng/mL (10.0-291.0); VITAMIN D, 25-HYDROXY 22.8 ng/mL (30-100)
== END | disposition home or self-care (01) ==
LOC: LAB 09:43
PROVIDERS: ATTEND Internal Medicine Nephrology
DX: N18.32 Chronic kidney disease, stage 3b (principal); D63.1 Anemia in chronic kidney disease; N25.81 Secondary hyperparathyroidism of renal origin; Z79.899 Other long term (current) drug therapy

== ENCOUNTER 2022-08-23 16:04 | Emergency (ER) | payer MEDICARE, OTHER ==
[~2022-08-23] VITALS: Ht 160 cm; Wt 53.1 kg
[2022-08-23 16:33] LABS: BASO # 0.1 10*3/uL (0.0-0.1); BASO % 0.6 % (0.0-1.0); EOS # 0.2 10*3/uL (0.0-0.4); EOS % 2.4 % (1.0-4.0); HEMATOCRIT 35.1 % (37.0-47.0); LYMPH # 1.7 10*3/uL (1.3-4.4); LYMPH % 21.2 % (27.0-41.0); MEAN CELL VOLUME 86.9 fl (81.0-99.0); MEAN CORPUSCULAR HGB 28.7 pg (27.0-31.0); MEAN PLATELET VOLUME 10.7 fl (9.6-12.3); MONO # 0.7 10*3/uL (0.1-1.0); MONO % 8.9 % (3.0-9.0); NEUT # 5.2 10*3/uL (2.3-7.9); NEUT % 66.8 % (47.0-73.0); PLATELET COUNT AUTOMATED 269 10*3/uL (130-400); RED BLOOD COUNT 4.04 10*6/uL (4.10-5.10); RED CELL DISTRI WIDTH 13.3 % (0-14.5); WHITE BLOOD COUNT 7.8 10*3/uL (4.8-10.8)
[2022-08-23 16:59] LABS: POTASSIUM 3.6 mmol/L (3.4-5.1)
[2022-08-23] MEDS ORDERED: Ondansetron4 MG PO (18:06)
[2022-08-23] MEDS ORDERED: PROTONIX40 MG PO (18:06)
== END 2022-08-23 18:28 | disposition home or self-care (01) ==
LOC: ED 16:04
PROVIDERS: Emergency Medicine
DX: K20.90 Esophagitis, unspecified without bleeding (principal); R11.2 Nausea with vomiting, unspecified; Z88.2 Allergy status to sulfonamides; Z90.710 Acquired absence of both cervix and uterus; Z90.49 Acquired absence of other specified parts of digestive tract; Z98.890 Other specified postprocedural states; E11.9 Type 2 diabetes mellitus without complications

== ENCOUNTER 2023-02-07 02:02 | Emergency (ER) | payer MEDICARE, OTHER ==
[~2023-02-07] VITALS: Ht 157.4 cm; Wt 49.9 kg
[~2023-02-07 02:02] MED LIST changes: +Ondansetron4 MG PO
[2023-02-07] MEDS ORDERED: JANUVIA25 MG PO (15:44)
[2023-02-07] MEDS ORDERED: IMDUR SA30 MG PO (15:45)
[2023-02-07] MEDS ORDERED: CARVEDILOL3.125 MG PO (15:45)
[2023-02-07] MEDS ORDERED: VISTARIL25 MG PO (15:55)
== END 2023-02-07 04:14 | disposition home or self-care (01) ==
LOC: ED 02:02
DX: T50.901A Poisoning by unspecified drugs, medicaments and biological substances, accidental (unintentional), initial encounter (principal); L50.9 Urticaria, unspecified; Z88.2 Allergy status to sulfonamides; Z79.899 Other long term (current) drug therapy; Z90.49 Acquired absence of other specified parts of digestive tract; Z90.711 Acquired absence of uterus with remaining cervical stump; Y92.89 Other specified places as the place of occurrence of the external cause

== ENCOUNTER 2023-02-07 13:54 | Emergency (ER) | payer MEDICARE, OTHER ==
[~2023-02-07] VITALS: Ht 160 cm; Wt 49.9 kg
[2023-02-07] MEDS ORDERED: JANUVIA25 MG PO (15:44)
[2023-02-07] MEDS ORDERED: IMDUR SA30 MG PO (15:45)
[2023-02-07] MEDS ORDERED: CARVEDILOL3.125 MG PO (15:45)
[2023-02-07] MEDS ORDERED: VISTARIL25 MG PO (15:55)
== END 2023-02-07 16:05 | disposition home or self-care (01) ==
LOC: ED 13:54
DX: L29.9 Pruritus, unspecified (principal); Z88.2 Allergy status to sulfonamides; Z79.899 Other long term (current) drug therapy; Z90.49 Acquired absence of other specified parts of digestive tract; Z90.711 Acquired absence of uterus with remaining cervical stump; Z98.890 Other specified postprocedural states

== ENCOUNTER 2023-04-15 01:53 | Emergency (ER) | payer MEDICARE, OTHER ==
[~2023-04-15] VITALS: Wt 54.4 kg
[~2023-04-15 01:53] MED LIST changes: +CARVEDILOL3.125 MG PO; +IMDUR SA30 MG PO; +JANUVIA25 MG PO; +VISTARIL25 MG PO
[2023-04-15 02:28] LABS: BASO % 0.5 % (0.0-1.0); EOS # 0.3 10*3/uL (0.0-0.4); EOS % 3.4 % (1.0-4.0); HEMATOCRIT 34.9 % (37.0-47.0); LYMPH # 2.1 10*3/uL (1.3-4.4); LYMPH % 28.4 % (27.0-41.0); MEAN CELL VOLUME 86.2 fl (81.0-99.0); MEAN CORPUSCULAR HGB 28.6 pg (27.0-31.0); MEAN CORPUSCULAR HGB CONC 33.2 g/dl (33.0-37.0); MEAN PLATELET VOLUME 10.6 fl (9.6-12.3); MONO # 0.8 10*3/uL (0.1-1.0); MONO % 11.3 % (3.0-9.0); NEUT # 4.2 10*3/uL (2.3-7.9); NEUT % 56.3 % (47.0-73.0); PLATELET COUNT AUTOMATED 271 10*3/uL (130-400); RED BLOOD COUNT 4.05 10*6/uL (4.10-5.10); RED CELL DISTRI WIDTH 13.2 % (0-14.5); WHITE BLOOD COUNT 7.4 10*3/uL (4.8-10.8)
[2023-04-15 02:41] LABS: ACT PARTIAL THROMBO TIME 29.4 SECONDS (20.0-32.1)
[2023-04-15 02:51] LABS: POTASSIUM 3.8 mmol/L (3.4-5.1); TOTAL PROTEIN 7.1 gm/dL (6.0-8.0)
== END 2023-04-15 03:25 | disposition short-term general hospital (02) ==
LOC: ED 01:53
PROVIDERS: Internal Medicine
DX: I21.3 ST elevation (STEMI) myocardial infarction of unspecified site (principal); R68.84 Jaw pain; E11.9 Type 2 diabetes mellitus without complications; I48.91 Unspecified atrial fibrillation; Z88.2 Allergy status to sulfonamides; Z90.710 Acquired absence of both cervix and uterus; Z90.49 Acquired absence of other specified parts of digestive tract; Z98.890 Other specified postprocedural states

== ENCOUNTER → 2023-04-20 | Outpatient (CLI) | payer MEDICARE, OTHER ==
[2023-04-20 08:56] LABS: BASO # 0.1 10*3/uL (0.0-0.1); BASO % 0.9 % (0.0-1.0); EOS # 0.2 10*3/uL (0.0-0.4); EOS % 2.1 % (1.0-4.0); LYMPH # 0.9 10*3/uL (1.3-4.4); MEAN CELL VOLUME 87.2 fl (81.0-99.0); MEAN CORPUSCULAR HGB 28.6 pg (27.0-31.0); MEAN CORPUSCULAR HGB CONC 32.8 g/dl (33.0-37.0); MEAN PLATELET VOLUME 10.4 fl (9.6-12.3); MONO # 0.6 10*3/uL (0.1-1.0); MONO % 8.6 % (3.0-9.0); NEUT # 5.3 10*3/uL (2.3-7.9); NEUT % 75.1 % (47.0-73.0); PLATELET COUNT AUTOMATED 342 10*3/uL (130-400); RED BLOOD COUNT 3.67 10*6/uL (4.10-5.10); RED CELL DISTRI WIDTH 13.3 % (0-14.5)
[2023-04-20 09:31] LABS: POTASSIUM 4.3 mmol/L (3.4-5.1)
== END | disposition home or self-care (01) ==
LOC: LAB 08:38
DX: Z79.899 Other long term (current) drug therapy (principal)

== ENCOUNTER 2023-06-27 09:41 | Emergency (ER) | payer MEDICARE, OTHER ==
[~2023-06-27] VITALS: Ht 157.4 cm; Wt 50.8 kg
[2023-06-27] MEDS ORDERED: LASIX20 MG PO (10:14)
[2023-06-27] MEDS ORDERED: JARDIANCE10 MG PO (10:15)
[2023-06-27] MEDS ORDERED: CLOPIDOGREL75 MG PO (10:15)
[2023-06-27] MEDS ORDERED: ROSUVASTATIN CA40 MG PO (10:16)
== END 2023-06-27 10:52 | disposition home or self-care (01) ==
LOC: ED 09:41
DX: S51.811A Laceration without foreign body of right forearm, initial encounter (principal); S50.11XA Contusion of right forearm, initial encounter; I48.91 Unspecified atrial fibrillation; E11.9 Type 2 diabetes mellitus without complications; Z88.2 Allergy status to sulfonamides; Z90.710 Acquired absence of both cervix and uterus; Z90.49 Acquired absence of other specified parts of digestive tract; Z98.890 Other specified postprocedural states; W19.XXXA Unspecified fall, initial encounter; Y93.89 Activity, other specified; Y92.89 Other specified places as the place of occurrence of the external cause; Y99.8 Other external cause status

== ENCOUNTER → 2023-06-28 | Outpatient (CLI) | payer MEDICARE, OTHER ==
[~2023-06-28] MED LIST changes: +CLOPIDOGREL75 MG PO; +JARDIANCE10 MG PO; +LASIX20 MG PO; +ROSUVASTATIN CA40 MG PO
== END | disposition home or self-care (01) ==
LOC: WOUNDCARE 01:52
PROVIDERS: ATTEND Nurse Practitioner Family
DX: S41.119A Laceration without foreign body of unspecified upper arm, initial encounter (principal); S40.021A Contusion of right upper arm, initial encounter; E11.9 Type 2 diabetes mellitus without complications; I50.9 Heart failure, unspecified; K21.9 Gastro-esophageal reflux disease without esophagitis; Z87.891 Personal history of nicotine dependence; Z90.710 Acquired absence of both cervix and uterus; Z90.49 Acquired absence of other specified parts of digestive tract; Z95.5 Presence of coronary angioplasty implant and graft; Z86.73 Personal history of transient ischemic attack (TIA), and cerebral infarction without residual deficits; W19.XXXA Unspecified fall, initial encounter; Y93.89 Activity, other specified; Y92.89 Other specified places as the place of occurrence of the external cause; Y99.8 Other external cause status

== ENCOUNTER → 2023-07-05 | Outpatient (CLI) | payer MEDICARE, OTHER | END | disposition home or self-care (01) | LOC: WOUNDCARE 03:49 | PROVIDERS: ATTEND Nurse Practitioner Family | DX: S41.119D Laceration without foreign body of unspecified upper arm, subsequent encounter (principal); S51.801D Unspecified open wound of right forearm, subsequent encounter; L98.9 Disorder of the skin and subcutaneous tissue, unspecified; E11.9 Type 2 diabetes mellitus without complications; I50.9 Heart failure, unspecified; K21.9 Gastro-esophageal reflux disease without esophagitis; Z86.73 Personal history of transient ischemic attack (TIA), and cerebral infarction without residual deficits; Z90.49 Acquired absence of other specified parts of digestive tract; Z90.710 Acquired absence of both cervix and uterus; Z95.818 Presence of other cardiac implants and grafts; Z87.891 Personal history of nicotine dependence; X58.XXXD Exposure to other specified factors, subsequent encounter ==

== ENCOUNTER → 2023-07-12 | Outpatient (CLI) | payer MEDICARE, OTHER ==
[2023-07-12 11:03] LABS: BASO # 0.1 10*3/uL (0.0-0.1); BASO % 0.7 % (0.0-1.0); EOS # 0.1 10*3/uL (0.0-0.4); EOS % 1.8 % (1.0-4.0); LYMPH # 1.2 10*3/uL (1.3-4.4); LYMPH % 17.3 % (27.0-41.0); MEAN CELL VOLUME 86.9 fl (81.0-99.0); MEAN CORPUSCULAR HGB CONC 31.1 g/dl (33.0-37.0); MEAN PLATELET VOLUME 10.6 fl (9.6-12.3); MONO # 0.6 10*3/uL (0.1-1.0); MONO % 8.2 % (3.0-9.0); NEUT % 71.7 % (47.0-73.0); PLATELET COUNT AUTOMATED 274 10*3/uL (130-400); RED BLOOD COUNT 4.26 10*6/uL (4.10-5.10); RED CELL DISTRI WIDTH 14.6 % (0-14.5)
[2023-07-12 11:23] LABS: ALKALINE PHOSPHATASE 65 U/L (46-116); BUN 13 mg/dl (9-23); CHLORIDE 109 mmol/L (98-107); CHOLESTEROL 142 mg/dL (<200); LDL CHOLESTEROL 74 mg/dL (9-159); POTASSIUM 3.7 mmol/L (3.4-5.1); SGPT/ALT < 7 U/L (5-49); TOTAL PROTEIN 7.2 gm/dL (6.0-8.0); TRIGLYCERIDES 84 mg/dl (<150)
== END | disposition home or self-care (01) ==
LOC: LAB 00:53 → WOUNDCARE 00:53
PROVIDERS: ATTEND Nurse Practitioner Family
DX: S51.801D Unspecified open wound of right forearm, subsequent encounter (principal); S41.119D Laceration without foreign body of unspecified upper arm, subsequent encounter; L98.9 Disorder of the skin and subcutaneous tissue, unspecified; K21.9 Gastro-esophageal reflux disease without esophagitis; I50.9 Heart failure, unspecified; E11.9 Type 2 diabetes mellitus without complications; Z86.73 Personal history of transient ischemic attack (TIA), and cerebral infarction without residual deficits; Z90.49 Acquired absence of other specified parts of digestive tract; Z95.818 Presence of other cardiac implants and grafts; Z87.891 Personal history of nicotine dependence; X58.XXXD Exposure to other specified factors, subsequent encounter

== ENCOUNTER → 2023-08-15 | Outpatient (CLI) | payer MEDICARE, OTHER ==
[~2023-08-15] MED LIST changes: +ENTRESTO 24 MG1 EACH PO
== END | disposition home or self-care (01) ==
LOC: WOUNDCARE 01:49
PROVIDERS: ATTEND Nurse Practitioner Family
DX: S51.811D Laceration without foreign body of right forearm, subsequent encounter (principal); S40.021D Contusion of right upper arm, subsequent encounter; L98.9 Disorder of the skin and subcutaneous tissue, unspecified; I50.9 Heart failure, unspecified; E11.9 Type 2 diabetes mellitus without complications; K21.9 Gastro-esophageal reflux disease without esophagitis; Z86.73 Personal history of transient ischemic attack (TIA), and cerebral infarction without residual deficits; Z87.891 Personal history of nicotine dependence; Z90.710 Acquired absence of both cervix and uterus; Z90.49 Acquired absence of other specified parts of digestive tract; Z95.5 Presence of coronary angioplasty implant and graft; X58.XXXD Exposure to other specified factors, subsequent encounter

== ENCOUNTER → 2023-11-29 | Outpatient (CLI) | payer MEDICARE, OTHER ==
[~2023-11-29] MED LIST changes: +ATORVASTATIN CA40 M1 PO; +TOPROL XL25 MG PO
== END | disposition home or self-care (01) ==
LOC: RAD 15:55
PROVIDERS: ATTEND Nurse Practitioner Primary Care
DX: M79.672 Pain in left foot (principal); M79.89 Other specified soft tissue disorders

== ENCOUNTER 2024-01-09 12:33 | Emergency (ER) | payer MEDICARE, OTHER ==
[~2024-01-09] VITALS: Ht 160 cm; Wt 47.6 kg
[2024-01-09] MEDS ORDERED: diphenhydrAMINE hydrochloride 25 MG/10 ML UDC PO ONE (14:05)
[2024-01-09] MEDS ORDERED: methylPREDNISolone sod succ 125 MG VIAL IM ONE (14:05)
[2024-01-09 14:21] LABS: BASO % 0.6 % (0.0-1.0); EOS # 0.1 10*3/uL (0.0-0.4); EOS % 1.5 % (1.0-4.0); LYMPH # 1.3 10*3/uL (1.3-4.4); LYMPH % 21.2 % (27.0-41.0); MEAN CELL VOLUME 90.5 fl (81.0-99.0); MEAN CORPUSCULAR HGB 27.9 pg (27.0-31.0); MEAN CORPUSCULAR HGB CONC 30.8 g/dl (33.0-37.0); MEAN PLATELET VOLUME 10.6 fl (9.6-12.3); MONO # 0.6 10*3/uL (0.1-1.0); MONO % 9.9 % (3.0-9.0); NEUT # 4.1 10*3/uL (2.3-7.9); NEUT % 66.6 % (47.0-73.0); PLATELET COUNT AUTOMATED 232 10*3/uL (130-400); RED BLOOD COUNT 3.98 10*6/uL (4.10-5.10); RED CELL DISTRI WIDTH 15.4 % (0-14.5); WHITE BLOOD COUNT 6.2 10*3/uL (4.8-10.8)
[2024-01-09 14:46] LABS: POTASSIUM 3.8 mmol/L (3.4-5.1)
[2024-01-09] MEDS ORDERED: [UNRECOGNIZED DRUG - OTHER] T ONE (15:00)
[2024-01-09] MEDS ORDERED: PREDNISONE20 M1 PO (15:20)
== END 2024-01-09 15:35 | disposition home or self-care (01) ==
LOC: ED 12:33
PROVIDERS: Nurse Practitioner
DX: L25.9 Unspecified contact dermatitis, unspecified cause (principal); E11.9 Type 2 diabetes mellitus without complications; I25.2 Old myocardial infarction; I48.91 Unspecified atrial fibrillation; Z88.2 Allergy status to sulfonamides; Z90.710 Acquired absence of both cervix and uterus; Z90.49 Acquired absence of other specified parts of digestive tract; Z98.890 Other specified postprocedural states; Z95.5 Presence of coronary angioplasty implant and graft